=== PATIENT | female | born 1935 | race Caucasian/White ===

== ENCOUNTER 2016-04-13 15:07 | Emergency (ER) | payer OTHER ==
[~2016-04-13] VITALS: Ht 149.9 cm; Wt 61.0 kg
[~2016-04-13 15:07] MED LIST: ACIDOPHILUS1 EAC3 PO; ACIDOPHILUS100 MG PO; ALL DAY ALLERGY10 MG PO; ALLERGY10 M1 PO; ASCORBIC ACID100 MG PO; ASPIRIN325 MG PO; B COMPLEX #11 EACH PO; B-COMPLEX WITH1 EAC2 PO; CALCIUM 600 +1 EAC5 PO; CALCIUM 600 +1 EAC7 PO; CARVEDILOL6.25 MG PO; CINNABETIC1 CAPSUL1 PO; CINNAMON500 MG PO; CLONIDINE HCL0.2 MG PO; CYANOCOBAL1000 MCG/2 IM; DAILY MULTIVIT1 EAC4 PO; DAILY VITAMIN1 EAC8 PO; DILAUDID2 MG PO; DOXYCYCLINE HY100 MG PO; FISH OIL 1,2001 EAC4 PO; FISH OIL CONC1 EACH PO; FISH OIL500 MG PO; FLEXERIL5 MG PO; GARLIC OIL1 EACH PO; GARLIC OIL1000 MG PO; GARLIC100 MG PO; GLIMEPIRIDE4 MG PO; GLUCOSAMINE &1 EACH PO; GLUCOSAMINE CH1 EAC1 PO; GLUCOSAMINE CH1 EAC2 PO; IMODIUM A-D2 MG PO; L-LYSINE500 MG PO; LOSARTAN-HCTZ1 EAC1 PO; NATURAL VITA200 UNIT PO; OMEPRAZOLE20 M2 PO; ONE-A-DAY ESSE1 EAC1 PO; PRAVASTATIN SOD80 MG PO; PROTONIX40 MG PO; RECLAST5 MG/100 M IV; SIMVASTATIN40 MG PO; SUPER B COMPLE150 MG PO; VESICARE5 MG PO; VITAMIN B12-FO1 EACH PO; VITAMIN C1000 MG PO; VITAMIN E400 UNI3 PO; VITAMIN E400 UNIT PO; ZOFRAN4 MG PO
[2016-04-13 18:07] VITALS: BP 188/83
== END 2016-04-13 18:09 | disposition home or self-care (01) ==
LOC: EXP 15:07 → EME 15:07 → EXP 18:09
DX: S01.81XA Laceration without foreign body of other part of head, initial encounter (principal); S00.31XA Abrasion of nose, initial encounter; W17.89XA Other fall from one level to another, initial encounter; Y92.812 Truck as the place of occurrence of the external cause; Z23 Encounter for immunization; I10 Essential (primary) hypertension; E78.5 Hyperlipidemia, unspecified; K21.9 Gastro-esophageal reflux disease without esophagitis
CPT/HCPCS: 70450; 99281; 99284

== ENCOUNTER 2017-01-06 06:47 | Day surgery (SDC) | payer OTHER ==
[~2017-01-06] VITALS: Ht 144.8 cm; Wt 56.2 kg
[~2017-01-06 06:47] MED LIST changes: +ASPIR 8181 M1 PO; +DITROPAN XL10 MG PO; +FISH OIL 1,0001 EAC7 PO; +PROLIA60 MG/1 ML SC; +VITAMIN D32000 UNI1 PO; +ZYRTEC10 M3 PO
[2017-01-06 08:19] LABS: POINT-OF-CARE METER ID UU14174212
[2017-01-06 10:03] LABS: ADD MIUA? YES; BILIRUBIN NEGATIVE; BLOOD NEGATIVE; COLOR YELLOW ((YELLOW)); GLUCOSE (STRIP) NEGATIVE; KETONES NEGATIVE; LEUKOCYTES SMALL; NITRITE POSITIVE; PROTEIN (STRIP) NEGATIVE; SPECIFIC GRAVITY 1.011 (1.000-1.030); UROBILINOGEN 0.2 MG/DL (0.2-1.0)
[2017-01-06 10:36] LABS: BACTERIA 3+ /HPF; EPITHELIAL CELLS RARE /HPF; HYALINE CASTS 0-5 /LPF; MUCUS TRACE /LPF; RED BLOOD CELLS 0-5 /HPF (0-5); WHITE BLOOD CELLS CLUMP OCC /HPF (0-5)
[2017-01-06 10:37] LABS: POINT-OF-CARE METER ID UU13113675; POINT-OF-CARE USER ID 515036437
[2017-01-06 13:03] VITALS: BP 170/72
[2017-01-06 16:03] LABS: ANION GAP 10 MEQ/L (2-14); CHLORIDE 107 MEQ/L (99-109); POTASSIUM 3.7 MEQ/L (3.7-5.4); SAMPLE HEMOLYSIS CHECK 0; SAMPLE ICTERIC CHECK 0; SAMPLE LIPEMIA CHECK 0; SODIUM 140 MEQ/L (136-147)
[2017-01-06 16:08] LABS: GFR ESTIMATE (CALCULATED) 46 mL/min/; GLUCOSE 180 mg/dL (70-99); UREA NITROGEN (BUN) 25 mg/dL (9-23)
[2017-01-06 16:10] LABS: HEMATOCRIT 33.1 % (36.0-46.0); MCH 30.7 PG (29.0-34.0); MCHC 34.1 G/DL (30.0-36.0); MCV 89.9 FL (83-99); PLATELET COUNT 199 K/uL (156-360); RBC DIS.WIDTH-CV 12.4 % (11.8-14.6); RBC DIS.WIDTH-SD 40.7 % (39-53); RED BLOOD COUNT 3.68 M/uL (3.80-5.20); WHITE BLOOD COUNT 12.3 K/uL (4.1-10.2)
[2017-01-06 18:48] LABS: POINT-OF-CARE METER ID UU14162508
[2017-01-06 19:40] VITALS: BP 134/60
[2017-01-06 22:12] LABS: POINT-OF-CARE METER ID UU14162508
[2017-01-06 23:17] VITALS: BP 152/67
[2017-01-06 23:53] LABS: POINT-OF-CARE METER ID UU14314084
[2017-01-07 03:02] VITALS: BP 136/61
[2017-01-07 05:41] LABS: POINT-OF-CARE METER ID UU14314084
[2017-01-07 07:03] LABS: HEMATOCRIT 30.2 % (36.0-46.0); MCHC 34.4 G/DL (30.0-36.0); MCV 90.1 FL (83-99); MEAN PLAT.VOLUME 12.2 uM^3 (9.5-12.4); PLATELET COUNT 174 K/uL (156-360); RBC DIS.WIDTH-CV 12.5 % (11.8-14.6); RBC DIS.WIDTH-SD 40.3 % (39-53); RED BLOOD COUNT 3.35 M/uL (3.80-5.20); WHITE BLOOD COUNT 15.4 K/uL (4.1-10.2)
[2017-01-07 07:29] LABS: ANION GAP 11 MEQ/L (2-14); CHLORIDE 105 MEQ/L (99-109); GFR ESTIMATE (CALCULATED) 51 mL/min/; GLUCOSE 129 mg/dL (70-99); POTASSIUM 3.8 MEQ/L (3.7-5.4); SAMPLE HEMOLYSIS CHECK 0; SAMPLE ICTERIC CHECK 0; SAMPLE LIPEMIA CHECK 0; SODIUM 141 MEQ/L (136-147); UREA NITROGEN (BUN) 17 mg/dL (9-23)
[2017-01-07 08:38] VITALS: BP 144/91
== END 2017-01-07 11:02 | disposition home or self-care (01) ==
LOC: SDC → 2SOUTH 10:30 → ENRESERV 10:51 → CANRESERV 10:51 → SDC 11:27 → CANRESERV 11:51 → ENRESERV 11:51 → 2EAST 13:03 → SDC 13:40 → 2EAST 01-07 11:02
PROVIDERS: Obstetrics & Gynecology Gynecologic Oncology
DX: N81.3 Complete uterovaginal prolapse (principal); N80.0 Endometriosis of uterus; N72 Inflammatory disease of cervix uteri; I10 Essential (primary) hypertension; E11.9 Type 2 diabetes mellitus without complications; K21.9 Gastro-esophageal reflux disease without esophagitis; I25.10 Atherosclerotic heart disease of native coronary artery without angina pectoris; E78.00 Pure hypercholesterolemia, unspecified; Z79.82 Long term (current) use of aspirin; Z79.84 Long term (current) use of oral hypoglycemic drugs
CPT/HCPCS: 80048; 81003; 82948; 85027; 87077; 87086; 87186; 88305; 94799; G0378; J0171; J0330; J0690; J1650; J1815; J2405; J2710; J3010; J7120; Q0175

== ENCOUNTER 2017-04-15 13:21 | Observation (INO) | payer OTHER ==
[~2017-04-15] VITALS: Ht 142.2 cm; Wt 50.4 kg
[~2017-04-15 13:21] MED LIST changes: +ACIDOPHILUS LA1 EAC1 PO; -ACIDOPHILUS100 MG PO; -DAILY VITAMIN1 EAC8 PO; +L-LYSINE1000 M1 PO; +MULTI VITAMIN1 EACH PO; +OXYBUTYNIN CHLO10 MG PO; +PREDNISONE20 MG PO; +REFRESH CELLUV1 EACH BOTH EYES; +STOOL SOFTENER100 MG PO; +TRAMADOL HCL50 MG PO; +TYLENOL ARTHRI650 MG PO; -VITAMIN E400 UNI3 PO
[2017-04-15 14:53] LABS: HEMATOCRIT 28.9 % (36.0-46.0); HEMOGLOBIN 9.8 G/DL (11.9-15.5); MCH 29.7 PG (29.0-34.0); MCHC 33.9 G/DL (30.0-36.0); MCV 87.6 FL (83-99); PLATELET COUNT 290 K/uL (156-360); RBC DIS.WIDTH-CV 13.9 % (11.8-14.6); WHITE BLOOD COUNT 8.5 K/uL (4.1-10.2)
[2017-04-15 15:07] LABS: ALBUMIN 2.9 g/dL (3.2-4.8); CHLORIDE 112 mEq/L (99-109); POTASSIUM 3.9 mEq/L (3.7-5.4); SODIUM 141 mEq/L (136-147)
[2017-04-15 15:09] LABS: GLUCOSE 65 mg/dL (70-99); TOTAL PROTEIN 5.7 g/dL (6.4-8.3)
[2017-04-15 15:11] LABS: TOTAL BILIRUBIN 0.5 mg/dL (0.0-1.0)
[2017-04-15 15:13] LABS: ALKALINE PHOSPHATASE 108 IU/L (3-129); GFR ESTIMATE (CALCULATED) 56 mL/min/
[2017-04-15 15:14] LABS: UREA NITROGEN (BUN) 26 mg/dL (9-23)
[2017-04-15 15:15] LABS: AST (GOT) 21 IU/L (2-34); TROP-I INTERPRETATION NEGATIVE; TROPONIN-I < 0.01 ng/mL (0.0-0.30)
[2017-04-15 15:16] LABS: ALT (GPT) 8 IU/L (3-49)
[2017-04-15 17:22] LABS: APPEARANCE CLEAR ((CLEAR)); BILIRUBIN NEGATIVE; BLOOD NEGATIVE; COLOR YELLOW ((YELLOW)); GLUCOSE (STRIP) NEGATIVE; KETONES NEGATIVE; LEUKOCYTES TRACE; NITRITE NEGATIVE; PROTEIN (STRIP) NEGATIVE; SPECIFIC GRAVITY 1.016 (1.000-1.030); UROBILINOGEN 0.2 MG/DL (0.2-1.0)
[2017-04-15 17:28] LABS: BACTERIA RARE /HPF; EPITHELIAL CELLS NONE SEEN /HPF; HYALINE CASTS 0-5 /LPF; MUCUS TRACE /LPF; RED BLOOD CELLS 0-5 /HPF (0-5); UCUL ADDED? YES
[2017-04-15] MEDS ORDERED: POTASSIUM CHLO20 ME1 PO (20:15)
[2017-04-15] MEDS ORDERED: LOVASTATIN40 MG PO (20:15)
[2017-04-15] MEDS ORDERED: SIMVASTATIN40 MG PO (20:16)
[2017-04-15] MEDS ORDERED: PANTOPRAZOLE SO40 MG PO (20:17)
[2017-04-15] MEDS ORDERED: LASIX20 MG PO (20:19)
[2017-04-15 21:02] VITALS: BP 139/63
[2017-04-16] VITALS (7 sets, daily range): BP systolic 111–148; BP diastolic 55–67
[2017-04-16 05:54] LABS: HEMATOCRIT 24.9 % (36.0-46.0); HEMOGLOBIN 8.4 G/DL (11.9-15.5); MCH 29.5 PG (29.0-34.0); MCHC 33.7 G/DL (30.0-36.0); MCV 87.4 FL (83-99); PLATELET COUNT 261 K/uL (156-360); RBC DIS.WIDTH-SD 45.3 % (39-53); RED BLOOD COUNT 2.85 M/uL (3.80-5.20); WHITE BLOOD COUNT 7.2 K/uL (4.1-10.2)
[2017-04-16 06:19] LABS: CHLORIDE 105 MEQ/L (99-109); CREATININE 0.9 MG/DL (0.6-1.3); GFR ESTIMATE (CALCULATED) > 59 mL/min/; POTASSIUM 3.2 MEQ/L (3.7-5.4); SODIUM 136 MEQ/L (136-147); UREA NITROGEN (BUN) 20 mg/dL (9-23)
[2017-04-16 06:32] LABS: GLUCOSE 122 mg/dL (70-99)
[2017-04-16 16:07] LABS: HEMATOCRIT 28.5 % (36.0-46.0); HEMOGLOBIN 9.6 G/DL (11.9-15.5); MCH 30.1 PG (29.0-34.0); MCHC 33.7 G/DL (30.0-36.0); MCV 89.3 FL (83-99); PLATELET COUNT 289 K/uL (156-360); RBC DIS.WIDTH-CV 14.2 % (11.8-14.6); RBC DIS.WIDTH-SD 46.4 % (39-53); RED BLOOD COUNT 3.19 M/uL (3.80-5.20); WHITE BLOOD COUNT 10.6 K/uL (4.1-10.2)
[2017-04-16 16:32] LABS: CHLORIDE 105 MEQ/L (99-109); CREATININE 0.9 MG/DL (0.6-1.3); GFR ESTIMATE (CALCULATED) > 59 mL/min/; GLUCOSE 90 mg/dL (70-99); POTASSIUM 3.5 MEQ/L (3.7-5.4); SODIUM 137 MEQ/L (136-147); UREA NITROGEN (BUN) 17 mg/dL (9-23)
[2017-04-17 03:43] VITALS: BP 107/56
[2017-04-17 05:54] LABS: HEMATOCRIT 25.6 % (36.0-46.0); HEMOGLOBIN 8.6 G/DL (11.9-15.5); MCH 30.2 PG (29.0-34.0); MCHC 33.6 G/DL (30.0-36.0); MCV 89.8 FL (83-99); PLATELET COUNT 234 K/uL (156-360); RBC DIS.WIDTH-SD 45.8 % (39-53); RED BLOOD COUNT 2.85 M/uL (3.80-5.20); WHITE BLOOD COUNT 6.9 K/uL (4.1-10.2)
[2017-04-17 06:28] LABS: ALBUMIN 2.1 G/DL (3.2-4.8); ALKALINE PHOSPHATASE 83 IU/L (3-129); ALT (GPT) 8 IU/L (3-49); AST (GOT) 17 IU/L (2-34); CHLORIDE 106 MEQ/L (99-109); CREATININE 0.8 MG/DL (0.6-1.3); GFR ESTIMATE (CALCULATED) > 59 mL/min/; GLUCOSE 131 mg/dL (70-99); POTASSIUM 3.6 MEQ/L (3.7-5.4); SODIUM 137 MEQ/L (136-147); TOTAL BILIRUBIN 0.3 MG/DL (0.0-1.0); TOTAL PROTEIN 4.2 G/DL (6.4-8.3); UREA NITROGEN (BUN) 13 mg/dL (9-23)
[2017-04-17 09:40] VITALS: BP 124/81
[2017-04-17 11:31] VITALS: BP 116/57
[2017-04-17 16:18] VITALS: BP 131/67
== END 2017-04-17 18:58 | disposition home or self-care (01) ==
LOC: EME 13:21 → EDOF 19:05 → 5WEST 19:05 → EDOF 19:05 → ENRESERV 19:17 → 5WEST 20:47
PROVIDERS: Emergency Medicine; Internal Medicine
DX: E11.649 Type 2 diabetes mellitus with hypoglycemia without coma (principal); D64.9 Anemia, unspecified; E87.6 Hypokalemia; I10 Essential (primary) hypertension; M19.90 Unspecified osteoarthritis, unspecified site; N99.3 Prolapse of vaginal vault after hysterectomy; Z90.710 Acquired absence of both cervix and uterus; Z90.722 Acquired absence of ovaries, bilateral; Z79.84 Long term (current) use of oral hypoglycemic drugs; Z88.1 Allergy status to other antibiotic agents
CPT/HCPCS: 71046; 80048; 80048 91; 80053; 81003; 82272; 82948; 84484; 85027; 87077; 87086; 87186; 93005; 99281; 99285; G0378; G8978 GP CI; G8979 GP CI; G8980 GP CI; J1644; J7070

== ENCOUNTER 2017-05-02 20:42 | Emergency (ER) | payer OTHER ==
[~2017-05-02] VITALS: Ht 149.9 cm; Wt 43.7 kg
[~2017-05-02 20:42] MED LIST changes: +LASIX20 MG PO; +LOVASTATIN40 MG PO; +PANTOPRAZOLE SO40 MG PO; +POTASSIUM CHLO20 ME1 PO
[2017-05-02] MEDS ORDERED: KEFLEX500 MG PO (21:56)
[2017-05-02] MEDS ORDERED: BACTROBAN OINTM22 GM TP (22:00)
[2017-05-02 22:17] VITALS: BP 154/72
== END 2017-05-02 22:17 | disposition home or self-care (01) ==
LOC: EME 20:42
DX: S80.11XA Contusion of right lower leg, initial encounter (principal); S80.811A Abrasion, right lower leg, initial encounter; L08.9 Local infection of the skin and subcutaneous tissue, unspecified; W22.09XA Striking against other stationary object, initial encounter; E11.8 Type 2 diabetes mellitus with unspecified complications; E78.5 Hyperlipidemia, unspecified; I10 Essential (primary) hypertension; K21.9 Gastro-esophageal reflux disease without esophagitis; Z90.49 Acquired absence of other specified parts of digestive tract; Z79.82 Long term (current) use of aspirin; Z79.84 Long term (current) use of oral hypoglycemic drugs; Z88.1 Allergy status to other antibiotic agents
CPT/HCPCS: 87070; 87075; 87205; 99281; 99284

== ENCOUNTER 2017-06-05 18:01 | Inpatient (IN) | payer OTHER ==
[~2017-06-05] VITALS: Ht 144.8 cm; Wt 51.8 kg
[~2017-06-05 18:01] MED LIST changes: +BACTROBAN OINTM22 GM TP; +KEFLEX500 MG PO; -LASIX20 MG PO; +TORSEMIDE100 MG PO
[2017-06-05 19:42] LABS: PLATELET COUNT 468 K/uL (156-360)
[2017-06-05 19:45] LABS: HEMATOCRIT 34.8 % (36.0-46.0); HEMOGLOBIN 12.1 G/DL (11.9-15.5); MCH 29.8 PG (29.0-34.0); MCHC 34.8 G/DL (30.0-36.0); MCV 85.7 FL (83-99); RBC DIS.WIDTH-CV 13.2 % (11.8-14.6); RBC DIS.WIDTH-SD 41.1 % (39-53); RED BLOOD COUNT 4.06 M/uL (3.80-5.20)
[2017-06-05 19:47] LABS: WHITE BLOOD COUNT 43.5 K/uL (4.1-10.2)
[2017-06-05 19:56] LABS: CHLORIDE 100 mEq/L (99-109); POTASSIUM 4.2 mEq/L (3.7-5.4); SODIUM 137 mEq/L (136-147)
[2017-06-05 19:58] LABS: GLUCOSE 207 mg/dL (70-99)
[2017-06-05 19:59] LABS: TOTAL PROTEIN 6.9 g/dL (6.4-8.3)
[2017-06-05 20:00] LABS: TOTAL BILIRUBIN 0.9 mg/dL (0.0-1.0)
[2017-06-05 20:02] LABS: ALKALINE PHOSPHATASE 210 IU/L (3-129); CREATININE 2.4 mg/dL (0.6-1.3); GFR ESTIMATE (CALCULATED) 21 mL/min/
[2017-06-05 20:03] LABS: UREA NITROGEN (BUN) 51 mg/dL (9-23)
[2017-06-05 20:04] LABS: AST (GOT) 24 IU/L (2-34)
[2017-06-05 20:05] LABS: ALT (GPT) 15 IU/L (3-49)
[2017-06-05 23:50] LABS: HEMATOCRIT 28.8 % (36.0-46.0); MCH 30.2 PG (29.0-34.0); MCHC 34.7 G/DL (30.0-36.0); PLATELET COUNT 349 K/uL (156-360); RBC DIS.WIDTH-CV 13.3 % (11.8-14.6); RED BLOOD COUNT 3.31 M/uL (3.80-5.20)
[2017-06-05 23:51] LABS: WHITE BLOOD COUNT 36.8 K/uL (4.1-10.2)
[2017-06-06] MEDS ORDERED: PILOCARPINE HCL5 MG PO (01:05)
[2017-06-06 02:05] VITALS: BP 105/51
[2017-06-06 04:47] VITALS: BP 98/55
[2017-06-06 07:45] VITALS: BP 103/55
[2017-06-06] MEDS ORDERED: MEGACE 40 MG40 MG/ML PO (11:15)
[2017-06-06 11:47] VITALS: BP 111/55
[2017-06-06 14:16] LABS: BASOPHIL (%) 0.2 % (0-1); BASOPHIL COUNT 0.1 K/uL (0-0.1); EOSINOPHIL (%) 0 % (0-5); IMMATURE GRANULOCYTE (%) 1.7 % (0.0-0.7); LYMPHOCYTE (%) 1.6 % (15-42); LYMPHOCYTE COUNT 0.6 K/uL (1.0-2.8); MONOCYTE COUNT 1.2 K/uL (0-0.8); NEUTROPHIL (%) 93.5 % (45-76); NEUTROPHIL COUNT 36.8 K/uL (1.8-6.4); PLATELET COUNT 381 K/uL (156-360)
[2017-06-06 14:38] LABS: HEMATOCRIT 32.6 % (36.0-46.0); HEMOGLOBIN 10.6 G/DL (11.9-15.5); MCHC 32.5 G/DL (30.0-36.0); MCV 89.1 FL (83-99); RBC DIS.WIDTH-CV 13.5 % (11.8-14.6); RBC DIS.WIDTH-SD 44.1 % (39-53); RED BLOOD COUNT 3.66 M/uL (3.80-5.20)
[2017-06-06 14:43] LABS: WHITE BLOOD COUNT 39.3 K/uL (4.1-10.2)
[2017-06-06 14:55] LABS: FERRITIN 1439 NG/ML (10-291)
[2017-06-06 14:58] LABS: IRON 20 MCG/DL (35-150); TRANSFERRIN (TIBC) < 53 mg/dL (215-380); TRANSFERRIN SATUR. 30 % (20-55)
[2017-06-06 16:59] VITALS: BP 115/67
[2017-06-06 19:36] LABS: BASOPHIL (%) 0.2 % (0-1); BASOPHIL COUNT 0.1 K/uL (0-0.1); EOSINOPHIL (%) 0 % (0-5); IMMATURE GRANULOCYTE (%) 2.1 % (0.0-0.7); LYMPHOCYTE (%) 1.8 % (15-42); LYMPHOCYTE COUNT 0.7 K/uL (1.0-2.8); MONOCYTE (%) 2.7 % (3-12); MONOCYTE COUNT 1.1 K/uL (0-0.8); NEUTROPHIL (%) 93.2 % (45-76); NEUTROPHIL COUNT 36.5 K/uL (1.8-6.4); PLATELET COUNT 389 K/uL (156-360)
[2017-06-06 19:57] LABS: HEMATOCRIT 32.4 % (36.0-46.0); HEMOGLOBIN 10.6 G/DL (11.9-15.5); MCHC 32.7 G/DL (30.0-36.0); MCV 88.8 FL (83-99); RBC DIS.WIDTH-CV 13.5 % (11.8-14.6); RED BLOOD COUNT 3.65 M/uL (3.80-5.20); WHITE BLOOD COUNT 39.2 K/uL (4.1-10.2)
[2017-06-06 21:42] VITALS: BP 110/69
[2017-06-07] VITALS (7 sets, daily range): BP systolic 90–138; BP diastolic 54–65
[2017-06-07 07:30] LABS: ALBUMIN 1.8 G/DL (3.2-4.8); ALKALINE PHOSPHATASE 121 IU/L (3-129); ALT (GPT) 10 IU/L (3-49); AST (GOT) 25 IU/L (2-34); CHLORIDE 110 MEQ/L (99-109); SODIUM 138 MEQ/L (136-147); TOTAL BILIRUBIN 0.3 MG/DL (0.0-1.0); TOTAL PROTEIN 4.4 G/DL (6.4-8.3); UREA NITROGEN (BUN) 37 mg/dL (9-23)
[2017-06-07 07:31] LABS: CREATININE 1.8 MG/DL (0.6-1.3); GFR ESTIMATE (CALCULATED) 29 mL/min/; GLUCOSE 73 mg/dL (70-99); POTASSIUM 2.8 MEQ/L (3.7-5.4)
[2017-06-07 14:18] LABS: POTASSIUM 3.2 MEQ/L (3.7-5.4)
[2017-06-08 03:58] VITALS: BP 109/55
[2017-06-08 06:20] LABS: BASOPHIL (%) 0.1 % (0-1); EOSINOPHIL (%) 0.1 % (0-5); HEMATOCRIT 25.7 % (36.0-46.0); HEMOGLOBIN 8.7 G/DL (11.9-15.5); IMMATURE GRANULOCYTE (%) 1.5 % (0.0-0.7); LYMPHOCYTE (%) 3.9 % (15-42); LYMPHOCYTE COUNT 1.1 K/uL (1.0-2.8); MCH 28.9 PG (29.0-34.0); MCHC 33.9 G/DL (30.0-36.0); MCV 85.4 FL (83-99); MONOCYTE (%) 3.5 % (3-12); NEUTROPHIL (%) 90.9 % (45-76); NEUTROPHIL COUNT 25.5 K/uL (1.8-6.4); PLATELET COUNT 352 K/uL (156-360); RBC DIS.WIDTH-CV 13.5 % (11.8-14.6); RBC DIS.WIDTH-SD 42.3 % (39-53); RED BLOOD COUNT 3.01 M/uL (3.80-5.20); WHITE BLOOD COUNT 28.1 K/uL (4.1-10.2)
[2017-06-08 06:53] LABS: CHLORIDE 111 MEQ/L (99-109); CREATININE 1.4 MG/DL (0.6-1.3); GFR ESTIMATE (CALCULATED) 38 mL/min/; GLUCOSE 57 mg/dL (70-99); POTASSIUM 3.5 MEQ/L (3.7-5.4); SODIUM 137 MEQ/L (136-147); UREA NITROGEN (BUN) 26 mg/dL (9-23)
[2017-06-08 09:25] VITALS: BP 177/79
[2017-06-08 15:43] VITALS: BP 162/68
[2017-06-08 17:06] LABS: HEMATOCRIT 31.4 % (36.0-46.0); HEMOGLOBIN 10.5 G/DL (11.9-15.5); MCV 86.3 FL (83-99)
[2017-06-08 20:01] LABS: BASOPHIL (%) 0.2 % (0-1); BASOPHIL COUNT 0.1 K/uL (0-0.1); EOSINOPHIL (%) 0.1 % (0-5); IMMATURE GRANULOCYTE (%) 2.5 % (0.0-0.7); LYMPHOCYTE (%) 3.4 % (15-42); LYMPHOCYTE COUNT 1.2 K/uL (1.0-2.8); MONOCYTE (%) 3.3 % (3-12); MONOCYTE COUNT 1.2 K/uL (0-0.8); NEUTROPHIL (%) 90.5 % (45-76); NEUTROPHIL COUNT 32.5 K/uL (1.8-6.4); PLATELET COUNT 436 K/uL (156-360)
[2017-06-08 20:13] LABS: HEMATOCRIT 33.5 % (36.0-46.0); HEMOGLOBIN 11.8 G/DL (11.9-15.5); MCHC 35.2 G/DL (30.0-36.0); MCV 85.2 FL (83-99); RBC DIS.WIDTH-CV 14.2 % (11.8-14.6); RBC DIS.WIDTH-SD 44.5 % (39-53); RED BLOOD COUNT 3.93 M/uL (3.80-5.20)
[2017-06-09] VITALS: BP 138/66
[2017-06-09 01:32] LABS: APPEARANCE CLEAR ((CLEAR)); BILIRUBIN NEGATIVE; BLOOD NEGATIVE; COLOR AMBER ((YELLOW)); GLUCOSE (STRIP) NEGATIVE; KETONES NEGATIVE; LEUKOCYTES MODERATE; NITRITE NEGATIVE; PROTEIN (STRIP) NEGATIVE; SPECIFIC GRAVITY 1.013 (1.000-1.030); UROBILINOGEN 0.2 MG/DL (0.2-1.0)
[2017-06-09 01:39] LABS: BACTERIA RARE /HPF; EPITHELIAL CELLS RARE /HPF; HYALINE CASTS 0-5 /LPF; MUCUS TRACE /LPF; RED BLOOD CELLS 0-5 /HPF (0-5); UCUL ADDED? YES
[2017-06-09 07:14] LABS: ALBUMIN 2.3 G/DL (3.2-4.8); ALT (GPT) 8 IU/L (3-49); AST (GOT) 16 IU/L (2-34); CHLORIDE 112 MEQ/L (99-109); CREATININE 1.2 MG/DL (0.6-1.3); GFR ESTIMATE (CALCULATED) 46 mL/min/; HEMATOCRIT 28.9 % (36.0-46.0); MCH 28.7 PG (29.0-34.0); MCHC 33.2 G/DL (30.0-36.0); MCV 86.3 FL (83-99); PLATELET COUNT 339 K/uL (156-360); RBC DIS.WIDTH-SD 43.8 % (39-53); RED BLOOD COUNT 3.35 M/uL (3.80-5.20); SODIUM 138 MEQ/L (136-147); TOTAL PROTEIN 4.3 G/DL (6.4-8.3); UREA NITROGEN (BUN) 18 mg/dL (9-23); WHITE BLOOD COUNT 23.1 K/uL (4.1-10.2)
[2017-06-09 07:17] LABS: ALKALINE PHOSPHATASE 181 IU/L (3-129); GLUCOSE 87 mg/dL (70-99); POTASSIUM 4.4 MEQ/L (3.7-5.4); TOTAL BILIRUBIN 0.4 MG/DL (0.0-1.0)
[2017-06-09 07:18] LABS: HEMOGLOBIN 9.6 G/DL (11.9-15.5)
[2017-06-09 07:27] LABS: BASOPHIL (%) 0.2 % (0-1); EOSINOPHIL (%) 0.4 % (0-5); EOSINOPHIL COUNT 0.1 K/uL (0-0.3); LYMPHOCYTE (%) 6.6 % (15-42); LYMPHOCYTE COUNT 1.5 K/uL (1.0-2.8); MONOCYTE (%) 4.5 % (3-12); NEUTROPHIL (%) 86.3 % (45-76); NEUTROPHIL COUNT 19.7 K/uL (1.8-6.4)
[2017-06-09 08:30] LABS: STOOL OCCULT BLD 1ST SPECIMEN NEGATIVE
[2017-06-09 11:00] VITALS: BP 122/68
[2017-06-09 11:31] LABS: C DIFF TOXIN POSITIVE (NEGATIVE)
[2017-06-09 15:40] VITALS: BP 118/62
[2017-06-09 21:00] VITALS: BP 128/70
[2017-06-09 23:25] VITALS: BP 131/68
[2017-06-10 03:44] LABS: AP Bone Isoenzyme 26 % (28-66); AP Intestine Isoenzyme 0 % (1-24); AP Liver Isoenzyme 74 % (25-69); AP Macrohepatic Isoenzyme 0 % (<=0); AP Placental Isoenzyme 0 % (<=0); Alkaline Phosphatase, Total 142 U/L (33-130)
[2017-06-10 07:51] VITALS: BP 101/64
[2017-06-10 08:13] LABS: HEMATOCRIT 29.3 % (36.0-46.0); HEMOGLOBIN 9.6 G/DL (11.9-15.5); MCH 28.7 PG (29.0-34.0); MCHC 32.8 G/DL (30.0-36.0); MCV 87.5 FL (83-99); PLATELET COUNT 334 K/uL (156-360); RBC DIS.WIDTH-CV 14.6 % (11.8-14.6); RBC DIS.WIDTH-SD 46.7 % (39-53); RED BLOOD COUNT 3.35 M/uL (3.80-5.20); WHITE BLOOD COUNT 21.5 K/uL (4.1-10.2)
[2017-06-10 08:53] LABS: BASOPHIL (%) 0.3 % (0-1); BASOPHIL COUNT 0.1 K/uL (0-0.1); EOSINOPHIL (%) 1.4 % (0-5); EOSINOPHIL COUNT 0.3 K/uL (0-0.3); IMMATURE GRANULOCYTE (%) 2.7 % (0.0-0.7); LYMPHOCYTE (%) 10.3 % (15-42); LYMPHOCYTE COUNT 2.2 K/uL (1.0-2.8); MONOCYTE (%) 5.9 % (3-12); MONOCYTE COUNT 1.3 K/uL (0-0.8); NEUTROPHIL (%) 79.4 % (45-76)
[2017-06-10 17:47] VITALS: BP 134/63
[2017-06-10 20:26] VITALS: BP 124/68
[2017-06-10 23:40] VITALS: BP 121/78
[2017-06-11 11:35] LABS: BASOPHIL (%) 0.2 % (0-1); BASOPHIL COUNT 0.1 K/uL (0-0.1); EOSINOPHIL (%) 0.4 % (0-5); EOSINOPHIL COUNT 0.1 K/uL (0-0.3); HEMATOCRIT 31.2 % (36.0-46.0); HEMOGLOBIN 10.6 G/DL (11.9-15.5); IMMATURE GRANULOCYTE (%) 3.7 % (0.0-0.7); LYMPHOCYTE (%) 7.5 % (15-42); MCH 29.5 PG (29.0-34.0); MCV 86.9 FL (83-99); MONOCYTE (%) 4.8 % (3-12); MONOCYTE COUNT 1.3 K/uL (0-0.8); NEUTROPHIL (%) 83.4 % (45-76); NEUTROPHIL COUNT 22.6 K/uL (1.8-6.4); PLATELET COUNT 367 K/uL (156-360); RBC DIS.WIDTH-SD 47.1 % (39-53); RED BLOOD COUNT 3.59 M/uL (3.80-5.20)
[2017-06-11 12:27] LABS: ALBUMIN 2.5 G/DL (3.2-4.8); ALKALINE PHOSPHATASE 210 IU/L (3-129); ALT (GPT) 10 IU/L (3-49); AST (GOT) 21 IU/L (2-34); CHLORIDE 114 MEQ/L (99-109); CREATININE 0.9 MG/DL (0.6-1.3); GFR ESTIMATE (CALCULATED) > 59 mL/min/; SODIUM 135 MEQ/L (136-147); TOTAL PROTEIN 4.8 G/DL (6.4-8.3); UREA NITROGEN (BUN) 8 mg/dL (9-23)
[2017-06-11 12:28] LABS: GLUCOSE 134 mg/dL (70-99); POTASSIUM 6.2 MEQ/L (3.7-5.4); TOTAL BILIRUBIN 0.5 MG/DL (0.0-1.0)
[2017-06-11 16:15] VITALS: BP 136/61
[2017-06-11 23:59] VITALS: BP 128/67
[2017-06-12 06:17] LABS: HEMATOCRIT 32.8 % (36.0-46.0); HEMOGLOBIN 10.8 G/DL (11.9-15.5); MCH 28.7 PG (29.0-34.0); MCHC 32.9 G/DL (30.0-36.0); MCV 87.2 FL (83-99); PLATELET COUNT 402 K/uL (156-360); RBC DIS.WIDTH-CV 15.5 % (11.8-14.6); RBC DIS.WIDTH-SD 48.2 % (39-53); RED BLOOD COUNT 3.76 M/uL (3.80-5.20); WHITE BLOOD COUNT 29.8 K/uL (4.1-10.2)
[2017-06-12 06:46] LABS: ALBUMIN 2.4 G/DL (3.2-4.8); ALKALINE PHOSPHATASE 184 IU/L (3-129); ALT (GPT) 11 IU/L (3-49); AST (GOT) 29 IU/L (2-34); CHLORIDE 114 MEQ/L (99-109); CREATININE 0.9 MG/DL (0.6-1.3); GFR ESTIMATE (CALCULATED) > 59 mL/min/; POTASSIUM 5.5 MEQ/L (3.7-5.4); PREALBUMIN 8.4 mg/dL (10-40); SODIUM 137 MEQ/L (136-147); TOTAL PROTEIN 5.2 G/DL (6.4-8.3); UREA NITROGEN (BUN) 6 mg/dL (9-23)
[2017-06-12 06:49] LABS: GLUCOSE 74 mg/dL (70-99); TOTAL BILIRUBIN 0.7 MG/DL (0.0-1.0)
[2017-06-12 10:16] VITALS: BP 130/62
[2017-06-12 17:07] VITALS: BP 126/82
[2017-06-12 19:39] VITALS: BP 148/79
[2017-06-13 00:19] VITALS: BP 168/79
[2017-06-13 06:46] LABS: HEMATOCRIT 30.6 % (36.0-46.0); HEMOGLOBIN 10.4 G/DL (11.9-15.5); MCH 29.5 PG (29.0-34.0); MCV 86.7 FL (83-99); PLATELET COUNT 399 K/uL (156-360); RBC DIS.WIDTH-SD 48.8 % (39-53); RED BLOOD COUNT 3.53 M/uL (3.80-5.20); WHITE BLOOD COUNT 24.3 K/uL (4.1-10.2)
[2017-06-13 07:13] LABS: ALBUMIN 2.2 G/DL (3.2-4.8); ALKALINE PHOSPHATASE 188 IU/L (3-129); ALT (GPT) 9 IU/L (3-49); AST (GOT) 19 IU/L (2-34); CHLORIDE 114 MEQ/L (99-109); CREATININE 0.9 MG/DL (0.6-1.3); GFR ESTIMATE (CALCULATED) > 59 mL/min/; POTASSIUM 4.8 MEQ/L (3.7-5.4); SODIUM 139 MEQ/L (136-147); UREA NITROGEN (BUN) 7 mg/dL (9-23)
[2017-06-13 07:14] LABS: GLUCOSE 105 mg/dL (70-99); TOTAL BILIRUBIN 0.4 MG/DL (0.0-1.0)
[2017-06-13 07:30] VITALS: BP 122/78
[2017-06-13 15:27] VITALS: BP 108/64
[2017-06-13 23:53] VITALS: BP 140/70
[2017-06-14 07:52] VITALS: BP 162/74
[2017-06-14] MEDS ORDERED: BENTYL10 MG PO (15:38)
[2017-06-14] MEDS ORDERED: VANCOCIN 250 M250 MG PO (16:21)
[2017-06-14 16:26] VITALS: BP 123/82
[2017-06-14 23:55] VITALS: BP 92/55
[2017-06-15 07:47] VITALS: BP 102/68
[2017-06-15 08:18] VITALS: BP 129/74
[2017-06-15 15:50] VITALS: BP 104/70
== END 2017-06-15 18:21 | DRG 372 ==
LOC: EME 18:01 → EDOF 06-06 00:17 → 2EAST 06-06 00:17 → ENRESERV 06-06 00:18 → 2EAST 06-06 01:36
PROVIDERS: Family Medicine; Internal Medicine; Internal Medicine Gastroenterology; Physician Assistant; Specialist
DX: A04.72 Enterocolitis due to Clostridium difficile, not specified as recurrent (principal); N17.9 Acute kidney failure, unspecified; E83.51 Hypocalcemia; E86.0 Dehydration; E87.5 Hyperkalemia; E87.6 Hypokalemia; E88.09 Other disorders of plasma-protein metabolism, not elsewhere classified; J98.11 Atelectasis; R13.10 Dysphagia, unspecified; R63.4 Abnormal weight loss; Z68.21 Body mass index [BMI] 21.0-21.9, adult; K64.9 Unspecified hemorrhoids; R29.6 Repeated falls; I10 Essential (primary) hypertension; D64.9 Anemia, unspecified; E11.9 Type 2 diabetes mellitus without complications; I25.10 Atherosclerotic heart disease of native coronary artery without angina pectoris; K21.9 Gastro-esophageal reflux disease without esophagitis; K40.90 Unilateral inguinal hernia, without obstruction or gangrene, not specified as recurrent; J30.2 Other seasonal allergic rhinitis; M10.9 Gout, unspecified; M19.90 Unspecified osteoarthritis, unspecified site; M79.89 Other specified soft tissue disorders; R60.0 Localized edema; H91.90 Unspecified hearing loss, unspecified ear; Z79.82 Long term (current) use of aspirin; Z80.0 Family history of malignant neoplasm of digestive organs; Z86.73 Personal history of transient ischemic attack (TIA), and cerebral infarction without residual deficits; Z87.11 Personal history of peptic ulcer disease; Z88.1 Allergy status to other antibiotic agents
CPT/HCPCS: 71045; 74176; 80048; 80053; 81003; 81256 90; 82272; 82310; 82728; 82948; 83540; 83605; 84075 90; 84080 90; 84132 91; 84134; 84466; 85014; 85018; 85025; 85025 91; 85027; 86850; 86900; 86901; 86920; 87040; 87086; 87106; 87177; 87493; 87506; 94799; 97530 GO; 97530 GP; 99281; 99285; C9113; J0610; J0696; J1644; J1815; J2270; J2405; J3480; J7030; J7050; P9047; S0030

== ENCOUNTER → 2017-07-10 | Outpatient (CLI) | payer OTHER ==
[~2017-07-10] MED LIST changes: +BENTYL10 MG PO; +MEGACE 40 MG40 MG/ML PO; +PILOCARPINE HCL5 MG PO; +VANCOCIN 250 M250 MG PO
== END ==
LOC: RAD 09:26
DX: R13.12 Dysphagia, oropharyngeal phase (principal); Z87.01 Personal history of pneumonia (recurrent); Z87.19 Personal history of other diseases of the digestive system
CPT/HCPCS: 74230; 92611 GN; G8996 GN CL; G8997 GN CL; G8998 GN CL

== ENCOUNTER 2017-10-04 23:24 | Emergency (ER) | payer OTHER ==
[~2017-10-04] VITALS: Ht 121.9 cm; Wt 48.0 kg
[~2017-10-04 23:24] MED LIST changes: +DEMADEX5 MG PO; +GABAPENTIN300 MG PO; +KLOR-CON SPRIN10 MEQ PO; +LYRICA75 MG PO; +MYCOSTATIN 100,60 ML PO; +TRADJENTA5 MG PO
[2017-10-05 06:30] VITALS: BP 159/70
== END 2017-10-05 06:34 | disposition home or self-care (01) ==
LOC: EME 23:24
PROC: 0HQ1XZZ Repair Face Skin, External Approach (ICD-10-PCS; principal; 2017-10-04)
DX: S01.81XA Laceration without foreign body of other part of head, initial encounter (principal); W06.XXXA Fall from bed, initial encounter; Y93.89 Activity, other specified; I10 Essential (primary) hypertension; K21.9 Gastro-esophageal reflux disease without esophagitis; E78.5 Hyperlipidemia, unspecified; E11.9 Type 2 diabetes mellitus without complications; Z90.49 Acquired absence of other specified parts of digestive tract; Z90.710 Acquired absence of both cervix and uterus; Z79.84 Long term (current) use of oral hypoglycemic drugs; Z79.82 Long term (current) use of aspirin; Z88.2 Allergy status to sulfonamides; Z88.1 Allergy status to other antibiotic agents
CPT/HCPCS: 70450; 72125